=== PATIENT | female | born 1965 | race Two or more races ===

== ENCOUNTER 2017-05-24 08:15 | Inpatient (IN) | payer OTHER ==
[~2017-05-24] VITALS: Ht 175.3 cm; Wt 66.7 kg
[2017-05-24] MEDS ORDERED: ESTR0.624 PO (09:46)
[2017-05-24] MEDS ORDERED: PROGESTERONE100 MG PO (09:46)
[2017-05-24] MEDS ORDERED: DEXILANT60 MG PO (09:47)
[2017-05-24] MEDS ORDERED: RESTORIL30 MG PO (09:48)
[2017-05-24] MEDS ORDERED: [UNRECOGNIZED DRUG - OTHER] PO (09:48)
[2017-05-24] MEDS ORDERED: VOLTAREN-XR100 MG PO (09:49)
[2017-05-24] MEDS ORDERED: CLONAZEPAM0.5 MG PO (09:49)
== END 2017-05-28 12:08 | disposition home or self-care (01) | DRG 735 ==
LOC: ADM 08:15 → EDSTATUS 08:15 → O/R 05-26 06:00 → SURH 05-26 06:00 → SURG 05-26 07:00 → SURH 05-26 18:00
PROVIDERS: Obstetrics & Gynecology Gynecologic Oncology
PROC: 07TC0ZZ Resection of Pelvis Lymphatic, Open Approach (ICD-10-PCS; 2017-05-26)
PROC: 0UT70ZZ Resection of Bilateral Fallopian Tubes, Open Approach (ICD-10-PCS; 2017-05-26)
PROC: 0UT20ZZ Resection of Bilateral Ovaries, Open Approach (ICD-10-PCS; 2017-05-26)
PROC: 0UT90ZZ Resection of Uterus, Open Approach (ICD-10-PCS; principal; 2017-05-26 07:00)
DX: D25.1 Intramural leiomyoma of uterus (principal); D25.2 Subserosal leiomyoma of uterus; N72 Inflammatory disease of cervix uteri; N80.0 Endometriosis of uterus; N83.292 Other ovarian cyst, left side; N83.201 Unspecified ovarian cyst, right side

== ENCOUNTER 2024-07-20 22:11 | Emergency (ER) | payer OTHER ==
[~2024-07-20] VITALS: Ht 177.8 cm; Wt 78.9 kg
[~2024-07-20 22:11] MED LIST: CLONAZEPAM0.5 MG PO; DEXILANT60 MG PO; ESTR0.624 PO; PROGESTERONE100 MG PO; RESTORIL30 MG PO; VOLTAREN-XR100 MG PO; [UNRECOGNIZED DRUG - OTHER] PO
[2024-07-20] MEDS ORDERED: BARIUM SULFATE 450 ML ORAL.SUSP PO ONE (23:28)
[2024-07-20] MEDS ORDERED: 0.9 % SODIUM CHLORIDE 1,000 ML IV ONE (23:30)
[2024-07-20] MEDS ORDERED: PANTOPRAZOLE SODIUM 40 MG/VIAL VIAL IV ONE (23:30)
[2024-07-21 00:18] LABS: HEMATOCRIT 39.1 % (36.0-45.00); HEMOGLOBIN 13.1 g/dL (12.0-15.00); MEAN CORPUSCULAR HEMOGLOBIN 29.5 pg (27.00-32.0); MEAN CORPUSCULAR HGB CONC 33.5 g/dl (32.0-36.0); PLATELET COUNT 214 K/uL (150-450); RED BLOOD COUNT 4.44 M/uL (4.00-6.00); RED CELL DISTRIBUTION WIDTH 13.4 % (11.5-14.5)
[2024-07-21 00:55] LABS: ALBUMIN 3.9 gm/dL (3.4-5.0); BILIRUBIN TOTAL 0.43 mg/dL (0.3-1.2); CALCIUM 9.7 mg/dL (8.5-10.1); CREATININE SERUM 0.95 mg/dL (0.55-1.02); GLOBULINA 3.7 G/DL (2.4-3.5); POTASSIUM 3.88 mEq/L (3.5-5.1); TOTAL PROTEIN 7.6 gm/dL (6.4-8.2)
[2024-07-21 01:16] LABS: INR 1.02; PARTIAL THROMBOPLASTIN TIME 26.5 SECONDS (22.0-34.0); PROTHROMBIN TIME 11.1 SECONDS (9.0-11.5)
[2024-07-21 02:43] LABS: PH,URINE 5.5 (5.0-8.0); URINE APPEARANCE Clear; URINE BILIRRUBIN Negative (NEGATIVE); URINE BLOOD Moderate; URINE COLOR Yellow; URINE GLUCOSE Negative (NEGATIVE); URINE KETONE Negative (NEGATIVE); URINE LEUKOCYTE Large; URINE NITRATE Negative; URINE PROTEIN Negative (NEGATIVE); URINE UROBILINOGEN 0.2 E.U./dl
[2024-07-21 02:46] LABS: URINE BACTERIA 464.9 uL (0.0-1933); URINE EPITHELIAL CELLS 14.8 uL (0.0-38.8); URINE RBC 6.3 uL (0.0-20.8); URINE WBC 110.7 uL (0.0-23.2)
== END 2024-07-21 04:08 | disposition home or self-care (01) ==
LOC: ER 22:12
PROVIDERS: General Practice
DX: K64.4 Residual hemorrhoidal skin tags (principal)
CPT/HCPCS: 36415; 74177; 96365; 96366; 99284; J3490; J7030; Q9965